=== PATIENT | female | born 1950 | race Hispanic/Latino ===

== ENCOUNTER 2017-01-25 20:30 | Emergency (ER) | payer MEDICARE ==
[2017-01-25 20:30] VITALS: PULSE 78; BMI 15.0
[2017-01-25 20:49] VITALS: O2SAT 97
--- NOTE | 2017-01-25 21:02 | C.PDOC ---
History Of Present Illness 67 year old female presents to the ED with complaints of dysuria for two weeks. Patient notes a history of schizophrenia that is well controlled with medications with last admission for schizophrenia being in June 2016. She states dysuria caused exacerbation of hallucinations consistent with past UTI effect and began hearing voices again that were not commands but more of mumbles and do not distress her. Patient's son gave patient left over amoxicillin with relief of symptoms for one day but the voices and dysuria returned. She denies any suicidal or homicidal ideations. Time Seen by Provider: 01/25/17 20:36 Chief Complaint (Nursing): Psychiatric Evaluation History Per: Patient History/Exam Limitations: no limitations Onset/Duration Of Symptoms: Persistent (2 weeks ) Current Symptoms Are (Timing): Still Present Suicide/Self Injury Attempted (Context): None Associated Symptoms: Other (hallucenations exacerbated by dysuria). denies: Suicidal Thoughts, Suicidal Plan Involuntary Hold By: None Recent travel outside of the [place]: No Past Medical History Reviewed: Historical Data, Nursing Documentation, Vital Signs Vital Signs: Last Vital Signs Temp 98.6 F 01/25/17 20:41 Pulse 104 H 01/25/17 20:41 Resp 18 01/25/17 20:41 BP 144/66 01/25/17 20:41 Pulse Ox 97 01/25/17 21:58 - Medical History PMH: Anxiety, Cardia Arrhythmia, COPD, Depression, Schizophrenia, Seizures ( EPILEPSY) Surgical History: Appendectomy Denies: Coronary Stent - [facility] Procedures CORONAR ARTERIOGR-2 CATH (01/13/14) GROUP PSYCHOTHERAPY (06/13/16) INDIVIDUAL PSYCHOTHERAPY, COGNITIVE-BEHAVIORAL (06/13/16) LEFT HEART CARDIAC CATH (01/13/14) LT HEART ANGIOCARDIOGRAM (01/13/14) Family History: States: Unknown Family Hx - Social History Hx Tobacco Use: Yes Hx Alcohol Use: No (DENIED) Hx Substance Use: No (DENIED) - Immunization History Hx Tetanus Toxoid Vaccination: No Hx Influenza Vaccination: No Hx Pneumococcal Vaccination: No Review Of Systems Constitutional: Negative for: Fever, Chills, Sweats Cardiovascular: Negative for: Chest Pain, Palpitations Respiratory: Negative for: Cough, Shortness of Breath Gastrointestinal: Negative for: Nausea, Vomiting, Abdominal Pain, Diarrhea Genitourinary: Positive for: Dysuria Neurological: Positive for: Other (Hallucenations, hearing mumbling voices. ) Physical Exam - Physical Exam Appears: Non-toxic, No Acute Distress Skin: Warm, Dry Head: Atraumatic Oral Mucosa: Moist Neck: No Midline Cervical Tenderness, No Paracervical Tenderness, Supple Chest: Symmetrical, No Deformity Cardiovascular: Rhythm Regular Respiratory: No Rales, No Rhonchi, No Stridor, No Wheezing Gastrointestinal/Abdominal: Soft, No Tenderness, No Distention, No Guarding, No Rebound Back: No CVA Tenderness, No Vertebral Tenderness, No Paraspinal Tenderness Extremity: Normal ROM, No Tenderness Neurological/Psych: Oriented x3 ED Course And Treatment - Laboratory Results Result Diagrams: 01/25/17 21:03 01/25/17 21:03 Lab Interpretation: Abnormal Interpretation Of Abnormal: Elevated WBC 13.8 with left shift, urine +2+ leukocyte esterase 64 WBC and many bacteria. O2 Sat by Pulse Oximetry: 97 (room air ) Pulse Ox Interpretation: Normal Reevaluation Time: 22:01 Reassessment Condition: Improved (Patient remains comfortable in ED.) - Physician Consult Information Time Consulting Physician Contacted: 22:07 Physician Contacted: Jennifer Chamberlain Outcome Of Conversation: Patient to be discharged with Rx for Macrobid. She will follow up with the urine culture and will see her in the office this week. Disposition Counseled Patient/Family Regarding: Studies Performed, Diagnosis, Need For Followup, Rx Given - Disposition Referrals: Jennifer Chamberlain MD [Staff Provider] - Disposition: HOME/ ROUTINE Disposition Time: 22:09 Condition: STABLE Prescriptions: Nitrofurantoin Macrocrystals [Macrobid] 1 cap PO BID #14 cap Instructions: Urinary Tract Infection in Women (ED), Schizophrenia (ED) - Clinical Impression Clinical Impression: UTI (urinary tract infection), Hallucinations, Schizophrenia - Scribe Statement The provider has reviewed the documentation as recorded by the Scribe Adwoa Ramey All medical record entries made by the Scribe were at my direction and personally dictated by me. I have reviewed the chart and agree that the record accurately reflects my personal performance of the history, physical exam, medical decision making, and the department course for this patient. I have also personally directed, reviewed, and agree with the discharge instructions and disposition.
[2017-01-25 21:12] LABS: BASO # 0.1 K/uL (0.0-0.2); EOS % 0.2 % (0.0-4.0); HEMATOCRIT 37.1 % (34.0-47.0); LYMPH # 1.5 K/uL (1.0-4.3); LYMPH % 10.8 % (20.0-40.0); MEAN CELL VOLUME 97.4 fL (81.0-99.0); MEAN CORPUSCULAR HEMOGLOBIN 33.1 pg (27.0-31.0); MEAN PLATELET VOLUME 7.5 fL (7.2-11.7); MONO # 0.3 K/uL (0.0-0.8); MONO % 2.5 % (0.0-10.0); RED CELL DISTRIBUTION WIDTH 13.4 % (11.5-14.5)
[2017-01-25 21:19] LABS: WHITE BLOOD COUNT 13.8 K/uL (4.8-10.8)
[2017-01-25 21:30] LABS: RBC URINE 5 /hpf (0-3); URINE BACTERIA MOD (<OCC); URINE BILIRUBIN NEGATIVE (NEGATIVE); URINE BLOOD NEGATIVE (NEGATIVE); URINE COLOR Yellow (YELLOW); URINE GLUCOSE (UA) NORMAL (Normal); URINE KETONE NEGATIVE (NEGATIVE); URINE LEUKOCYTE ESTERASE 2+ Leu/uL (Negative); URINE PROTEIN NEGATIVE (NEGATIVE); URINE UROBILINOGEN NORMAL mg/dL (0.2-1.0); WBC URINE 64 /hpf (0-5)
[2017-01-25 21:33] LABS: CHLORIDE 100 mmol/L (98-107); POTASSIUM 3.5 mmol/L (3.6-5.2); SODIUM 136 mmol/L (132-148)
[2017-01-25 21:35] LABS: ALB/GLOB RATIO 1.3 (1.0-2.1); ALKALINE PHOSPHATASE 135 U/L (38-126); AST/SGOT 27 U/L (14-36); BILIRUBIN,TOTAL 0.5 mg/dL (0.2-1.3); BLOOD UREA NITROGEN 5 mg/dL (7-17); CARBON DIOXIDE 24 mmol/L (22-30); GFR AFRICAN-AMERICAN > 60
[2017-01-25 21:36] LABS: ALCOHOL SERUM < 10 mg/dl (0-10); ALT/SGPT 27 U/L (9-52); CALCIUM 9.4 mg/dl (8.6-10.4); GLUCOSE,RANDOM 179 mg/dL (65-105)
[2017-01-25 22:20] VITALS: BP 164/79; PULSE 94; RESP 20; TEMP 98
== END 2017-01-25 22:32 | disposition home or self-care (01) ==
LOC: C.ER 20:30
DX: N39.0 Urinary tract infection, site not specified (principal); B96.89 Other specified bacterial agents as the cause of diseases classified elsewhere; R44.0 Auditory hallucinations; F20.9 Schizophrenia, unspecified
CPT/HCPCS: 80053; 80185; 81001; 85025; 87086; 99285; G0480

== ENCOUNTER 2017-02-05 19:02 | Inpatient (IN) | payer MEDICARE ==
[2017-02-05 19:04] VITALS: BMI 15.0
[2017-02-05 19:16] VITALS: O2SAT 100
--- NOTE | 2017-02-05 19:45 | C.PDOC ---
History Of Present Illness A 67 y/o F who is a baseline schizophrenic, c/o hearing more voice today than usual. Denies suicidal or homicidal ideation, nauseas, vomiting, diarrhea, dizziness, or any other physical complaints. Time Seen by Provider: 02/05/17 19:20 Chief Complaint (Nursing): Psychiatric Evaluation History Per: Patient History/Exam Limitations: no limitations Onset/Duration Of Symptoms: Hrs Current Symptoms Are (Timing): Still Present Suicide/Self Injury Attempted (Context): None Modifying Factor(s): None Severity: Mild Associated Symptoms: denies: Suicidal Thoughts, Suicidal Plan Involuntary Hold By: None Recent travel outside of the [place]: No Additional History Per: Patient Past Medical History Reviewed: Historical Data, Nursing Documentation, Vital Signs Vital Signs: Last Vital Signs Temp 98.2 F 02/05/17 19:11 Pulse 102 H 02/05/17 19:11 Resp 18 02/05/17 19:11 BP 145/85 02/05/17 19:11 Pulse Ox 100 02/05/17 19:49 - Medical History PMH: Anxiety, Cardia Arrhythmia, COPD, Depression, Schizophrenia, Seizures ( EPILEPSY) Denies: Diabetes, Hepatitis, HIV, HTN, Chronic Kidney Disease, Sexually Transmitted Disease Surgical History: Appendectomy Denies: Coronary Stent - [facility] Procedures CORONAR ARTERIOGR-2 CATH (01/13/14) GROUP PSYCHOTHERAPY (06/13/16) INDIVIDUAL PSYCHOTHERAPY, COGNITIVE-BEHAVIORAL (06/13/16) LEFT HEART CARDIAC CATH (01/13/14) LT HEART ANGIOCARDIOGRAM (01/13/14) Family History: States: Unknown Family Hx - Social History Hx Tobacco Use: Yes Hx Alcohol Use: No (DENIED) Hx Substance Use: No (DENIED) - Immunization History Hx Tetanus Toxoid Vaccination: No Hx Influenza Vaccination: No Hx Pneumococcal Vaccination: No Review Of Systems Except As Marked, All Systems Reviewed And Found Negative. Gastrointestinal: Negative for: Nausea, Vomiting, Diarrhea Neurological: Negative for: Dizziness Psych: Positive for: Psychosis (Hearing voices). Negative for: Suicidal ideation, Other (Homicidal ideation) Physical Exam - Physical Exam Appears: Non-toxic, No Acute Distress, Other (Thin appearing, elderly, chronically mentally ill appearing, Cooperative.) Skin: Warm, Dry Head: Atraumatic, Normacephalic Eye(s): bilateral: Normal Inspection Cardiovascular: Rhythm Regular Respiratory: Normal Breath Sounds, No Accessory Muscle Use, No Rales, No Rhonchi , No Wheezing Gastrointestinal/Abdominal: Soft, No Tenderness Neurological/Psych: Oriented x3, Normal Speech, Other (No focal deficit) Gait: Steady ED Course And Treatment - Laboratory Results Result Diagrams: 02/05/17 20:14 02/05/17 20:14 Lab Interpretation: Normal (ua neg.) O2 Sat by Pulse Oximetry: 100 (RA) Pulse Ox Interpretation: Normal Reevaluation Time: 21:32 Reassessment Condition: Unchanged - Physician Consult Information Outcome Of Conversation: 2129: d/w Crisis- ok to 5E Medical Decision Making Medical Decision Making: Impression: A 67 y/o F c/o hearing more voice today than usual. Plans: -Blood labs -UA -Reassess 2129: exacerbation of schizo Disposition Doctor Will See Patient In The: Hospital Counseled Patient/Family Regarding: Studies Performed, Diagnosis - Disposition Referrals: Keyur Jimenez MD [Primary Care Provider] - Disposition: HOSPITALIZED Disposition Time: 21:33 Condition: GOOD - Clinical Impression Clinical Impression: Schizophrenia - Scribe Statement The provider has reviewed the documentation as recorded by the Scribe Lucila morrell All medical record entries made by the Scribe were at my direction and personally dictated by me. I have reviewed the chart and agree that the record accurately reflects my personal performance of the history, physical exam, medical decision making, and the department course for this patient. I have also personally directed, reviewed, and agree with the discharge instructions and disposition.
[2017-02-05 19:53] LABS: SQUAMOUS EPITHIAL 62 /hpf (0-5); URINE BACTERIA MOD (<OCC); URINE BILIRUBIN NEGATIVE (NEGATIVE); URINE BLOOD NEGATIVE (NEGATIVE); URINE CLARITY Hazy (Clear); URINE COLOR Yellow (YELLOW); URINE GLUCOSE (UA) NORMAL (Normal); URINE LEUKOCYTE ESTERASE 2+ Leu/uL (Negative); URINE NITRATE NEGATIVE (NEGATIVE); URINE PROTEIN NEGATIVE (NEGATIVE); URINE UROBILINOGEN NORMAL mg/dL (0.2-1.0)
[2017-02-05 19:59] LABS: BARBITURATES, UR NEGATIVE (NEGATIVE)
[2017-02-05 20:00] LABS: BENZODIAZEPINES, UR NEGATIVE (NEGATIVE)
[2017-02-05 20:03] LABS: OPIATES, UR NEGATIVE (NEGATIVE)
[2017-02-05 20:04] LABS: PHENCYCLIDINE, UR NEGATIVE (NEGATIVE)
[2017-02-05 20:18] LABS: BASO # 0.1 K/uL (0.0-0.2); EOS % 0.8 % (0.0-4.0); HEMOGLOBIN 12.2 g/dL (11.0-16.0); LYMPH # 1.7 K/uL (1.0-4.3); LYMPH % 25.8 % (20.0-40.0); MEAN CELL VOLUME 98.4 fL (81.0-99.0); MEAN CORPUSCULAR HEMOGLOBIN 32.6 pg (27.0-31.0); MEAN CORPUSCULAR HGB CONC 33.2 g/dL (33.0-37.0); MEAN PLATELET VOLUME 7.9 fL (7.2-11.7); MONO # 0.4 K/uL (0.0-0.8); MONO % 6.1 % (0.0-10.0); NEUT # 4.3 K/uL (1.8-7.0); NEUT % 66.3 % (50.0-75.0); NRBC % 0.1 % (0.0-2.0); RBC 3.74 Mil/uL (3.80-5.20); RED CELL DISTRIBUTION WIDTH 13.4 % (11.5-14.5)
[2017-02-05 20:20] LABS: WHITE BLOOD COUNT 6.4 K/uL (4.8-10.8)
[2017-02-05 20:29] LABS: ALBUMIN 3.9 g/dL (3.5-5.0)
[2017-02-05 20:32] LABS: ALB/GLOB RATIO 1.3 (1.0-2.1); AST/SGOT 28 U/L (14-36); BLOOD UREA NITROGEN 6 mg/dL (7-17); GFR AFRICAN-AMERICAN > 60; GFR NON-AFRICAN AMERICAN > 60
[2017-02-05 20:33] LABS: ALT/SGPT 39 U/L (9-52); CALCIUM 9.1 mg/dl (8.6-10.4)
[2017-02-05 20:34] LABS: DILANTIN (PHENYTOIN) 9.3 ug/mL (10-20)
[2017-02-05] MEDS ORDERED: Potassium Chloride 20 mEq ER Tab PO ONE (21:59)
[2017-02-05] MEDS ORDERED: Potassium Chloride 10 mEq ER Tab PO STA (22:02)
--- NOTE | 2017-02-06 13:32 | PCM.PSYCH ---
Initial Psychiatric Evaluation - Initial Psychiatric Evaluation Type of Admission: Voluntary Legal Status: Capacity Chief Complaint (in patient's own words): "I don't feel well" History of Present Illness and Precipitating Events: The pt is seen, chart reviewed, case discussed. She is a 67 yo WF, , lives with her son in , has another son too. She is on disability for schizoaffective d/o Referred by her psychiatrist Dr. Aldana in [facility]. She reports AH telling her mostly comforting things, ie "Don't worry," but she is still disturbed by hearing them. She also feels more depressed but not suicidal. She reports compliance with her meds and denies drug/alcohol use. Reports lots of depressive sxs and some paranoia She is worried about her sons "even though there is nothing to worry." Since she is overwhelmed by the voices and decompensated severely she is admitted. Past psych hx: Multiple admissions, schizoaffective d/o. Family psych hx: Denies Medical hx: Heart dz (on digoxin), seizure d/o (on dilantin but level is slightly low) Current Medications: Active Medications Generic Name Dose Route Start Last Admin Trade Name Freq PRN Reason Stop Dose Admin Benztropine Mesylate 2 mg 02/06/17 00:53 Cogentin PO Q6 PRN Extra Pyramidal Symptoms Digoxin 0.25 mg 02/06/17 14:00 Lanoxin PO DAILY JORDAN Diphenhydramine HCl 50 mg 02/06/17 00:53 Benadryl PO Q6 PRN Extra Pyramidal Symptoms Haloperidol 5 mg 02/06/17 00:53 Haldol PO Q8 PRN Moderate Agitation Haloperidol Lactate 5 mg 02/06/17 00:53 Haldol IM Q8 PRN Moderate Agitation Mirtazapine 15 mg 02/06/17 22:00 Remeron PO HS JORDAN Nitrofurantoin Macrocrystals 100 mg 02/06/17 18:00 Macrobid PO BID JORDAN Phenytoin Sodium 100 mg 02/06/17 14:00 02/06/17 13:12 Dilantin PO 100 mg TID JORDAN Administration Trazodone HCl 100 mg 02/05/17 23:00 02/05/17 23:00 Desyrel PO 100 mg HS JORDAN Administration Venlafaxine HCl 150 mg 02/07/17 10:00 Effexor Xr PO QAM [facility] Venlafaxine HCl 75 mg 02/06/17 18:00 Effexor Xr PO QPM [facility] Past Psychiatric History - Past Psychiatric History Previous Treatment History: Inpatient Pertinent Medical Hx (Current Medical&Sleep Prob, Allergies): Allergies Allergy/AdvReac Type Severity Reaction Status Date / Time No Known Allergies Allergy Verified 02/05/17 19:11 Digoxin [Digitek] 0.25 mg PO DAILY 03/15/16 Phenytoin Sodium Extended [Dilantin] 100 mg PO TID 03/15/16 Venlafaxine HCl [Effexor Xr] 37.5 mg PO QAM 03/15/16 Venlafaxine HCl [Effexor Xr] 150 mg PO QPM 03/15/16 Mirtazapine [Remeron] 15 mg PO HS #0 tab 06/17/16 risperiDONE [RisperDAL Tab] 2 mg PO HS #30 tab 06/17/16 Nitrofurantoin Macrocrystals [Macrobid] 1 cap PO BID #14 cap 01/25/17 risperiDONE [RisperDAL Tab] 0.5 mg PO DAILY 01/25/17 Review of Systems - Psychiatric Psychiatric: Abnormal Sleep Pattern, Anhedonia, Anxiety, Auditory Hallucinations , Depression, Difficulty Concentrating, Hallucinations, Irritability, Memory Loss, Mood Swings, Panic Attacks, Paranoia. absent: Homicidal Ideation, Suicidal Ideation Mental Status Examination - Personal Presentation Personal Presentation: Looks stated age - Affect Affect: Constricted - Motor Activity Motor Activity: Calm - Reliability in Providing Information Reliability in Providing Information: Poor, due to cognitve impairment - Speech Speech: Organized - Mood Mood: Depressed, Anxious - Formal Thought Process Formal Thought Process: Hallucinations, Paranoia - Cognitive Functions Orientation: Person, Place, Situation, Time Sensorium: Alert Attention/Concentration: Easily distracted Estimate of Intelligence: Average Judgement: Intact, as evidence by: Insight regarding need for hospitalization Memory: Recent intact, as evidence by: Ability to recall events of the day, Remote impaired as evidenced by: Inability to recall historical events - Risk Risk: Diminished functioning - Strength & Assets Inventory Strength & Assets Inventory: Family support, Cooperative - Limitations Limitations: Other DSM 5 DX - DSM 5 DSM 5 Diagnosis: Schizoaffective d/o - depressed - Recommended/Plan of Treatment Treatment Recommendations and Plan of Treatment: Risperdal increased to 3 mg, for psychotic sxs Effexor increased to 225 mg for depressive sxs Continue other meds Dilantin level in 3-4 days Macrobid for UTI As needed medications Attend groups and activities Individual therapy with CBT Supportive therapy and psychoeducation Teach relaxation skills Follow medical conditions, labs, vitals Refer to [facility] 34 min Projected ELOS: 4-5 days Prognosis: good Discharge Plan and Discharge Criteria: No dep sxs or AH
[2017-02-06] MEDS ORDERED: Digoxin 250 mcg (0.25 mg) Tab PO SCH (14:00)
[2017-02-06] MEDS: Venlafaxine 75 mg ER Cap PO SCH (17:05)
[2017-02-06] MEDS: Digoxin 250 mcg (0.25 mg) Tab PO SCH (17:05)
[2017-02-06 17:14] VITALS: RESP 19
[2017-02-07] MEDS: Venlafaxine 150 mg ER Cap PO SCH (09:31)
[2017-02-07] MEDS ORDERED: Venlafaxine 37.5 mg ER Cap PO SCH (10:00)
--- NOTE | 2017-02-07 12:41 | PCM.PYCHPN ---
Psychiatric Progress Note - Psychiatric Progress Note Patient seen today, length of contact: 16 min Patient Chief Complaint: i am feeling depressed Problems Identified/Issues Discussed: Patient seen and evaluated, chart reviewed and discussed with the nurse. Patient reports depressed mood and at times feelings of hopelessness and helplessness. As per the staff patient remained isolated and withdrawn. Patient still reports persecutory delusions. She reports poor sleep and poor appetite. She is complaint with the medications and denies any side effects. Supportive therapy and psychoeducation were given. Medication Change: No Mental Status Examination - Cognitive Function Orientation: Person, Place, Situation, Time Memory: Intact Attention: WNL Concentration: Poor Association: Loose Fund of Knowledge: Poor - Mood Mood: Depressed, Anxious - Affect Affect: Constricted - Speech Speech: Soft - Formal Thought Process Formal Thought Process: Hallucinations, Paranoia - Suicidal Ideation Suicidal Ideation: No - Homicidal Ideation Homicidal Ideation: No Goal/Treatment Plan - Goal/Treatment Plan Need for Continued Stay: Discharge may exacerbated symptoms, Severe functional impairment Progress Toward Problem(s) and Goals/Treatment Plan: Schizoaffective d/o - depressed Risperdal increased to 3 mg, for psychotic sxs Effexor increased to 225 mg for depressive sxs Continue other meds Dilantin level in 3-4 days Macrobid for UTI As needed medications Attend groups and activities Individual therapy with CBT Supportive therapy and psychoeducation Teach relaxation skills Follow medical conditions, labs, vitals Refer to [facility] - Smoking Cessation Smoking Cessation Initiated: No
[2017-02-07] MEDS: Venlafaxine 75 mg ER Cap PO SCH (17:35)
[2017-02-07] MEDS: Digoxin 250 mcg (0.25 mg) Tab PO SCH (17:36)
[2017-02-08] MEDS: Venlafaxine 150 mg ER Cap PO SCH (09:52)
--- NOTE | 2017-02-08 13:40 | PCM.PYCHPN ---
Psychiatric Progress Note - Psychiatric Progress Note Patient seen today, length of contact: 16 min Patient Chief Complaint: "I am better" Problems Identified/Issues Discussed: The pt is seen, chart reviewed, case discussed with staff. Support given, CBT used briefly No new symptoms reported, improving slowly and needs more time No SEs from medications, risks discussed. After care discussed - will return to [facility] Better than Monday Medication Change: No Medical Record Reviewed: Yes Mental Status Examination - Cognitive Function Orientation: Person, Place, Situation, Time Memory: Intact Attention: WNL Concentration: Poor Association: Loose Fund of Knowledge: Poor - Mood Mood: Depressed, Anxious - Affect Affect: Constricted - Speech Speech: Soft - Formal Thought Process Formal Thought Process: Hallucinations, Paranoia - Suicidal Ideation Suicidal Ideation: No - Homicidal Ideation Homicidal Ideation: No Goal/Treatment Plan - Goal/Treatment Plan Need for Continued Stay: Discharge may exacerbated symptoms, Severe functional impairment Progress Toward Problem(s) and Goals/Treatment Plan: Risperdal increased to 3 mg, for psychotic sxs Effexor increased to 225 mg for depressive sxs Continue other meds Dilantin level in 3-4 days Macrobid for UTI As needed medications Attend groups and activities Individual therapy with CBT Supportive therapy and psychoeducation Teach relaxation skills Follow medical conditions, labs, vitals Refer back to [facility] Estimated Date of D/C: 02/10/17
[2017-02-08] MEDS: Digoxin 250 mcg (0.25 mg) Tab PO SCH (17:29)
[2017-02-08] MEDS: Venlafaxine 75 mg ER Cap PO SCH (19:00)
[2017-02-09] MEDS: Venlafaxine 150 mg ER Cap PO SCH (10:48)
--- NOTE | 2017-02-09 11:05 | PCM.PYCHPN ---
Psychiatric Progress Note - Psychiatric Progress Note Patient seen today, length of contact: 16 min Patient Chief Complaint: "I am nervous" Problems Identified/Issues Discussed: The pt is seen, chart reviewed, case discussed with staff. Support given, psychoeducation given Sxs have lessened a lot Nervous about pending d/c. Support given Medication Change: No Medical Record Reviewed: Yes Mental Status Examination - Cognitive Function Orientation: Person, Place, Situation, Time Memory: Intact Attention: WNL Concentration: Poor Association: Loose Fund of Knowledge: Poor - Mood Mood: Depressed, Anxious - Affect Affect: Constricted - Speech Speech: Soft - Formal Thought Process Formal Thought Process: Paranoia (mild) - Suicidal Ideation Suicidal Ideation: No - Homicidal Ideation Homicidal Ideation: No Goal/Treatment Plan - Goal/Treatment Plan Need for Continued Stay: Discharge may exacerbated symptoms, Severe functional impairment Progress Toward Problem(s) and Goals/Treatment Plan: Risperdal increased to 3 mg, for psychotic sxs Effexor increased to 225 mg for depressive sxs Continue other meds Dilantin level in 3-4 days Macrobid for UTI As needed medications Attend groups and activities Individual therapy with CBT Supportive therapy and psychoeducation Teach relaxation skills Follow medical conditions, labs, vitals Refer back to [facility] Estimated Date of D/C: 02/10/17
[2017-02-09 17:29] VITALS: PULSE 70
[2017-02-09] MEDS: Venlafaxine 75 mg ER Cap PO SCH (17:29)
[2017-02-09] MEDS: Digoxin 250 mcg (0.25 mg) Tab PO SCH (17:29)
[2017-02-10 07:30] VITALS: BP 112/67; PULSE 77; TEMP 97.8
[2017-02-10] MEDS: Venlafaxine 150 mg ER Cap PO SCH (09:34)
--- NOTE | 2017-02-10 09:38 | PCM.PYCHDC ---
Mental Status Examination - Mental Status Examination Orientation: Person, Place, Situation, Time Memory: Impaired Mood: Anxious Affect: Constricted Speech: Slurred Attention: WNL Concentration: Poor Association: WNL Fund of Knowledge: WNL Formal Thought Process: No Impairment Suicidal Ideation: No Current Homicidal Ideation?: No Discharge Summary - Discharge Note Reason for Hospitalization: Acute exacerbation of psychotic sxs and depression Psychiatric History (includes Medical, Family, Personal Hx): Schizoaffective, [facility] patient, previous admissions Consultations:: List each consultation separately and include: 1. Reason for request. 2. Findings. 3. Follow-up Summary of Hospital Course include:: 1. Description of specific treatment plan utilized for patients during their course of treatmen. 2. Summarize the time- course for resolution of acute symptoms and/or regressed behaviors. 3. Describe issues identified and worked on during hospitalization. 4. Describe medication utilized. 5. Describe medical problems identified and treated. 6. Reassessment of suicide risk Summary of Hospital Course: On admission: The pt is seen, chart reviewed, case discussed. She is a 67 yo WF, , lives with her son in , has another son too. She is on disability for schizoaffective d/o Referred by her psychiatrist Dr. Aldana in [facility]. She reports AH telling her mostly comforting things, ie "Don't worry," but she is still disturbed by hearing them. She also feels more depressed but not suicidal. She reports compliance with her meds and denies drug/alcohol use. Reports lots of depressive sxs and some paranoia She is worried about her sons "even though there is nothing to worry." Since she is overwhelmed by the voices and decompensated severely she is admitted. Past psych hx: Multiple admissions, schizoaffective d/o. Family psych hx: Denies Medical hx: Heart dz (on digoxin), seizure d/o (on dilantin but level is slightly low) Hospital course: The pt was admitted and started on treatment with psychotherapy, support, psychoeducation and medications. AL and CBT used. The pt attended groups and activities, as well as milieu therapy. All the risks and benefits of medications are discussed and the patient understood and agreed. Dose adjusted: risperdal and effexor both increased slightly with good response The pt improved with the treatments provided. After care discussed with the patient. [facility]rc - Final Diagnosis (DSM 5) Condition upon Discharge: GOOD DSM 5: Schizoaffective d/o - depressed Disposition: HOME/ ROUTINE Follow-up Treatment Plan: Continue below medications after discharge. (PS. Digoxin not ordered as her pharmacy said she had a 30-day waiting) Follow after care plan as discussed. Use relapse prevention skills Return to ER or call 911 if suicidal, homicidal or symptoms relapse. Stay away from stress, alcohol and drugs. See primary doctor once a year. Prescriptions/Medication Reconciliation: Digoxin [Digitek] 0.25 mg PO DAILY #30 Nitrofurantoin Macrocrystals [Macrobid] 1 cap PO BID #8 cap Phenytoin, Extended [Dilantin] 100 mg PO TID #90 cer risperiDONE [RisperDAL Tab] 3 mg PO HS #30 tab traZODone [Desyrel] 100 mg PO HS #30 tab Venlafaxine [Effexor XR] 150 mg PO DAILY #30 cer Venlafaxine [Effexor XR] 75 mg PO DAILY #30 cer
== END 2017-02-10 13:00 | disposition home or self-care (01) | DRG 885 ==
LOC: SUPCPDRO 19:02 → C.ER 19:02 → C.5E 21:33
PROVIDERS: ADMIT Psychiatry & Neurology Psychiatry; ATTEND Psychiatry & Neurology Psychiatry
PROC: GZHZZZZ Group Psychotherapy (ICD-10-PCS; principal; 2017-02-05)
PROC: GZ58ZZZ Individual Psychotherapy, Cognitive-Behavioral (ICD-10-PCS; 2017-02-05)
PROC: GZ56ZZZ Individual Psychotherapy, Supportive (ICD-10-PCS; 2017-02-05)
DX: F25.1 Schizoaffective disorder, depressive type (principal); N39.0 Urinary tract infection, site not specified

== ENCOUNTER 2017-04-25 13:14 | Emergency (ER) | payer MEDICARE ==
[2017-04-25 13:14] VITALS: PULSE 65; BMI 15.0
[2017-04-25 13:20] VITALS: BP 116/75; PULSE 98; RESP 20; TEMP 97.4; O2SAT 99
[2017-04-25 14:12] LABS: RBC URINE 5 /hpf (0-3); URINE BACTERIA RARE (<OCC); URINE BILIRUBIN NEGATIVE (NEGATIVE); URINE BLOOD NEGATIVE (NEGATIVE); URINE COLOR Amber (YELLOW); URINE GLUCOSE (UA) NORMAL (Normal); URINE KETONE TRACE mg/dL (NEGATIVE); URINE LEUKOCYTE ESTERASE 3+ Leu/uL (Negative); URINE PROTEIN NEGATIVE (NEGATIVE); WBC URINE 161 /hpf (0-5)
--- NOTE | 2017-04-25 14:28 | C.PDOC ---
History Of Present Illness Pt c/o foul smelling urine and suprapubic discomfort. Time Seen by Provider: 04/25/17 13:31 Chief Complaint (Nursing): Female Genitourinary History Per: Patient Onset/Duration Of Symptoms: Days (about 1 week) Current Symptoms Are (Timing): Still Present Severity: Moderate Associated Symptoms: Urinary Symptoms Alleviating Factors: None Additional History Per: Prior Records Abnormal Vaginal Bleeding: No Past Medical History Reviewed: Historical Data, Nursing Documentation, Vital Signs Vital Signs: Last Vital Signs Temp 97.4 F L 04/25/17 13:18 Pulse 98 H 04/25/17 13:18 Resp 20 04/25/17 13:18 BP 116/75 04/25/17 13:18 Pulse Ox 99 04/25/17 13:18 - Medical History PMH: Anxiety, Cardia Arrhythmia, COPD, Depression, Schizophrenia, Seizures ( EPILEPSY) Surgical History: Appendectomy - [facility] Procedures CORONAR ARTERIOGR-2 CATH (01/13/14) GROUP PSYCHOTHERAPY (02/05/17) INDIVIDUAL PSYCHOTHERAPY, COGNITIVE-BEHAVIORAL (02/05/17) INDIVIDUAL PSYCHOTHERAPY, SUPPORTIVE (02/05/17) LEFT HEART CARDIAC CATH (01/13/14) LT HEART ANGIOCARDIOGRAM (01/13/14) Family History: States: Unknown Family Hx - Social History Hx Tobacco Use: Yes Hx Alcohol Use: No Hx Substance Use: No - Immunization History Hx Tetanus Toxoid Vaccination: No Hx Influenza Vaccination: No Hx Pneumococcal Vaccination: No Review Of Systems Except As Marked, All Systems Reviewed And Found Negative. Constitutional: Negative for: Fever, Chills, Weakness Cardiovascular: Negative for: Chest Pain Respiratory: Negative for: Shortness of Breath Gastrointestinal: Negative for: Vomiting, Diarrhea Genitourinary: Negative for: Vaginal Discharge, Vaginal Bleeding Musculoskeletal: Negative for: Neck Pain, Back Pain Skin: Negative for: Rash Neurological: Negative for: Weakness, Numbness Physical Exam - Physical Exam Appears: Non-toxic, No Acute Distress Skin: Normal Color, Warm, Dry, No Rash Head: Atraumatic, Normacephalic Eye(s): bilateral: Normal Inspection, PERRL, EOMI Oral Mucosa: Moist Neck: Normal ROM, Supple Cardiovascular: Rhythm Regular Respiratory: Normal Breath Sounds, No Accessory Muscle Use Gastrointestinal/Abdominal: Soft, No Tenderness Back: No CVA Tenderness Extremity: Normal ROM Neurological/Psych: Oriented x3, Normal Motor, Normal Sensation ED Course And Treatment - Laboratory Results Interpretation Of Abnormal: UTI O2 Sat by Pulse Oximetry: 99 Pulse Ox Interpretation: Normal Disposition Counseled Patient/Family Regarding: Studies Performed, Diagnosis, Need For Followup, Rx Given - Disposition Referrals: Jennifer Chamberlain MD [Staff Provider] - Disposition: HOME/ ROUTINE Disposition Time: 14:27 Condition: STABLE Additional Instructions: Drink plenty of fluids. Follow up with your doctor this week. Return to the ER if you develop fever, chills, vomiting, back pain, worsening of symptoms or if you have any other concerns. Prescriptions: Ciprofloxacin [Cipro] 1 tab PO BID #10 tab Instructions: Urinary Tract Infection in Women (ED) Forms: [facility] (German) - Clinical Impression Clinical Impression: UTI (urinary tract infection)
== END 2017-04-25 14:34 | disposition home or self-care (01) ==
LOC: C.ER 13:14
DX: N39.0 Urinary tract infection, site not specified (principal)

== ENCOUNTER 2017-10-07 01:41 | Inpatient (IN) | payer MEDICARE ==
[2017-10-07 01:42] VITALS: BMI 15.0
[2017-10-07 02:43] LABS: SQUAMOUS EPITHIAL 4 /hpf (0-5); URINE BILIRUBIN NEGATIVE (NEGATIVE); URINE BLOOD 1+ (NEGATIVE); URINE CLARITY Clear (Clear); URINE COLOR Straw (YELLOW); URINE GLUCOSE (UA) NORMAL (Normal); URINE LEUKOCYTE ESTERASE NEG Leu/uL (Negative); URINE PROTEIN NEGATIVE (NEGATIVE); URINE UROBILINOGEN NORMAL mg/dL (0.2-1.0)
--- NOTE | 2017-10-07 02:44 | C.PDOC ---
History Of Present Illness Patient brought to ED by son for worsening auditory hallucinations, decreased ability to sleep over the past several days. Patient has h/o schizoaffective disorder, seizure disorder, cardiac arrythmia (on Digoxin). Patient recently saw Dr. Rivas, who adjusted her dose of Risperdal from 3mg at night to 1mg during day, then 2mg at night. Despite the adjustment, she continues to hear voices. She denies SI/HI, and has no current physical complaints. Time Seen by Provider: 10/07/17 01:47 Chief Complaint (Nursing): Psychiatric Evaluation History Per: Patient, Family (son at bedside ) History/Exam Limitations: no limitations Onset/Duration Of Symptoms: Persistent Suicide/Self Injury Attempted (Context): None Past Medical History Reviewed: Historical Data, Nursing Documentation, Vital Signs Vital Signs: Last Vital Signs Temp 97.9 F 10/11/17 08:56 Pulse 84 10/11/17 16:39 Resp 17 10/11/17 16:39 BP 97/57 L 10/11/17 16:39 Pulse Ox 97 10/07/17 06:22 - Medical History PMH: Anxiety, Cardia Arrhythmia, COPD, Depression, Schizophrenia, Seizures ( EPILEPSY) Surgical History: Appendectomy - [facility] Procedures CORONAR ARTERIOGR-2 CATH (01/13/14) GROUP PSYCHOTHERAPY (02/05/17) INDIVIDUAL PSYCHOTHERAPY, COGNITIVE-BEHAVIORAL (02/05/17) INDIVIDUAL PSYCHOTHERAPY, SUPPORTIVE (02/05/17) LEFT HEART CARDIAC CATH (01/13/14) LT HEART ANGIOCARDIOGRAM (01/13/14) Family History: States: No Known Family Hx - Social History Hx Tobacco Use: Yes Hx Alcohol Use: Yes Hx Substance Use: No - Immunization History Hx Tetanus Toxoid Vaccination: No Hx Influenza Vaccination: No Hx Pneumococcal Vaccination: No Review Of Systems Except As Marked, All Systems Reviewed And Found Negative. Cardiovascular: Negative for: Chest Pain Respiratory: Negative for: Shortness of Breath Gastrointestinal: Negative for: Abdominal Pain Psych: Positive for: Other (auditory hallucinations, insomnia). Negative for: Suicidal ideation Physical Exam - Physical Exam Appears: Well, Non-toxic, No Acute Distress, Other (flat affect) Eye(s): bilateral: Normal Inspection Oral Mucosa: Moist Cardiovascular: Rhythm Regular Respiratory: Normal Breath Sounds, No Rales, No Rhonchi, No Wheezing Gastrointestinal/Abdominal: Normal Exam, Bowel Sounds, Soft, No Tenderness Neurological/Psych: Oriented x3 ED Course And Treatment - Laboratory Results Result Diagrams: 10/07/17 03:03 10/07/17 03:03 ECG: Interpreted By Me, Viewed By Me (NSR 83 bpm, normal axis, no acute ST/T wave changes - unchanged from EKG 06/11/16) ECG Interpretation: No Acute Changes O2 Sat by Pulse Oximetry: 98 (RA) Pulse Ox Interpretation: Normal Progress Note: Blood work, UA, UDS, EKG ordered and reviewed. Digoxin level slightly low (0.7, normal is 0.8-2.0), 1 PO dose of Digoxin given. 4:40am- Patient medically cleared. Pending crisis. 5:10am- Patient accepted for psychiatric admission by Dr. Belcher. Disposition - Disposition Disposition: HOSPITALIZED Disposition Time: 05:10 Condition: STABLE - Clinical Impression Clinical Impression: Schizoaffective disorder Decision To Admit - Pt Status Changed To: Hospital Disposition Of: Inpatient - Admit Certification Admit to Inpatient:: After my assessment, the patient will require hospitalization for at least two midnights. This is because of the severity of symptoms shown, intensity of services needed, and/or the medical risk in this patient being treated as an outpatient. - InPatient: Physician Admission Certification: I certify that this patient requires 2 or more midnights of care for the following reason:: see notes - . Bed Request Type: Psychiatry Admitting Physician: Johnny Belcher Patient Diagnosis: Schizoaffective disorder
[2017-10-07 02:57] LABS: BARBITURATES, UR NEGATIVE (NEGATIVE); BENZODIAZEPINES, UR NEGATIVE (NEGATIVE); OPIATES, UR NEGATIVE (NEGATIVE); PHENCYCLIDINE, UR NEGATIVE (NEGATIVE)
[2017-10-07 03:08] LABS: EOS # 0.6 K/uL (0.0-0.7); EOS % 8.5 % (0.0-4.0); LYMPH # 1.1 K/uL (1.0-4.3); LYMPH % 16.2 % (20.0-40.0); MEAN CELL VOLUME 100.3 fL (81.0-99.0); MEAN CORPUSCULAR HEMOGLOBIN 34.3 pg (27.0-31.0); MEAN CORPUSCULAR HGB CONC 34.2 g/dL (33.0-37.0); MEAN PLATELET VOLUME 8.3 fL (7.2-11.7); MONO # 0.2 K/uL (0.0-0.8); MONO % 3.2 % (0.0-10.0); NEUT # 5.1 K/uL (1.8-7.0); NEUT % 72.1 % (50.0-75.0); NRBC % 0.1 % (0.0-2.0); RBC 3.8 Mil/uL (3.80-5.20); RED CELL DISTRIBUTION WIDTH 12.9 % (11.5-14.5)
[2017-10-07 03:18] LABS: ALB/GLOB RATIO 1.3 (1.0-2.1); ALBUMIN 4.2 g/dL (3.5-5.0); ALT/SGPT 30 U/L (9-52); AST/SGOT 25 U/L (14-36); BLOOD UREA NITROGEN 7 mg/dL (7-17); CALCIUM 9.7 mg/dl (8.6-10.4); GFR AFRICAN-AMERICAN > 60; GFR NON-AFRICAN AMERICAN > 60
[2017-10-07] MEDS ORDERED: Digoxin 250 mcg (0.25 mg) Tab PO STA (04:33)
[2017-10-07] MEDS ORDERED: Digoxin 250 mcg (0.25 mg) Tab ONE (04:45)
--- NOTE | 2017-10-07 07:53 | PCM.BM ---
<Renetta Almaraz - Last Filed: 10/07/17 07:52> Treatment Plan Problems - Problems identified on initial assessmt Auditory Hallucination Date Initiated: 10/07/17 Time Initiated: 07:52 Assessment reference: NA Status: Monitor Treatment assets and liabiliti Patient Assests: adapts well, cooperative - Milieu Protocol Maintain good personal hygiene: every shift Encourage regular showers, every shift Remind patient to perform daily oral care, every shift Assist patient to perform ADL's Maintain personal safety: every shift Educate patient to report safety concerns to staff, every shift Monitor environment for contraband/sharps Medication safety: Monitor for expected outcome, potential side effects: every shift, Assess barriers to learning: every shift, Assess readiness for medication education: every shift <Johnny Belcher - Last Filed: 10/09/17 09:58> - Diagnosis (1) Schizoaffective disorder Status: Acute Interventions: 10/09/17 09:58 * Assess/adjust medications daily and /or as needed * See patient on an individual basis 7x/week to assess status of hallucinations * Discuss risks, benefits, side effects and alternatives of medications * See patient on an individual basis 7x/week to assess symptoms of depression * Monitor for side effects & effectiveness of medications * <Sunitha Johnson - Last Filed: 10/09/17 11:00> Family Contact - Goals for Treatment Patient goals for treatment: "I need the right meds." Discharge/Continuing Care - Education Needs Education Needs: Patient Medication, Patient Coping Skills - Discharge Discharge Criteria: Tolerates medication w/o severe side effects, Free of paranoid thoughts, Reduction of target symptoms Discharge to:: Home, With Family - Treatment Team Participation Discussed with Family/SO: No Was Patient/Family/SO present at Treatment Team Meeting: Yes
--- NOTE | 2017-10-07 08:23 | PCM.PSYCH ---
Initial Psychiatric Evaluation - Initial Psychiatric Evaluation Type of Admission: Voluntary Legal Status: Capacity Chief Complaint (in patient's own words): I was hearing voices.' History of Present Illness and Precipitating Events: This is a 67 years old female with a history of schizoaffective disorder came to the ED complaining of hearing voices. As per the ED note, patient reported that she saw her doctor on 10/02/17 before he went on vacation and then saw another doctor Dr. Rivas. Pt. reported that she has been taking her medications as prescribed and she still continues to hear voices. Pt. reports that the voices do not tell her to hurt herself or other people. Pt. reports that she lives with her two sons and one of them is and lives with his in the house. Pt. reports that her in the early part of 1999. Pt. reports that she recently had to in her family. Pt. reports that her nephew a few weeks ago and a close family friend also around the same time. Pt. reports that she is retired at this time. 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 Pt. reports that she has strong upbringing and would not hurt herself or anyone else. Patient remained disorganized and internally preoccupied. She appears paranoid and delusional. She reports depressed mood and feelings of hopelessness and helplessness. However, she denies any suicidal ideation or homicidal ideation. She denies any drugs or any alcohol abuse. PMH: Heart dx (pt reports increased HR), Seizure d/o Past Psychiatric History - Past Psychiatric History Previous Treatment History: Inpatient Pertinent Medical Hx (Current Medical&Sleep Prob, Allergies): Allergies Allergy/AdvReac Type Severity Reaction Status Date / Time No Known Allergies Allergy Verified 10/07/17 01:54 Digoxin [Digitek] 0.25 mg PO DAILY #30 02/10/17 Phenytoin, Extended [Dilantin] 100 mg PO TID #90 cer 02/10/17 Venlafaxine [Effexor XR] 75 mg PO DAILY #30 cer 02/10/17 risperiDONE [RisperDAL Tab] 3 mg PO HS #30 tab 02/10/17 traZODone [Desyrel] 100 mg PO HS #30 tab 02/10/17 Venlafaxine [Effexor XR] 150 mg PO DAILY 10/07/17 risperiDONE [RisperDAL Tab] 1 mg PO DAILY 10/07/17 Review of Systems - Review of Systems All systems: reviewed and no additional remarkable complaints except - Psychiatric Psychiatric: Anxiety, Auditory Hallucinations, Irritability, Paranoia, Suicidal Ideation, Visual Hallucinations Mental Status Examination - Personal Presentation Personal Presentation: Looks stated age - Affect Affect: Constricted, Depressed - Motor Activity Motor Activity: Psychomotor Retardation - Reliability in Providing Information Reliability in Providing Information: Poor, due to alteration in thoughts, Poor , due to altered mood - Speech Speech: Disorganized - Mood Mood: Depressed, Anxious - Formal Thought Process Formal Thought Process: Hallucinations, Delusions, Paranoia, Loosening of associations - Hallucinations/Delusions Hallucinations: Visual, Auditory Delusions: Persecution - Obsessions/Compulsions Obsessions: No Compulsions: No - Cognitive Functions Orientation: Person, Place, Situation, Time Sensorium: Alert Attention/Concentration: Attentive Abstract Thinking: [place] Estimate of Intelligence: Below average Judgement: Imparied, as evidence by: Poor judgement, Imparied, as evidence by: Lack of insight into illness - Risk Risk: Suicidal, Diminished functioning - Limitations Limitations: Living alone DSM 5 DX - DSM 5 DSM 5 Diagnosis: Schizoaffective disorder depressed type - Recommended/Plan of Treatment Treatment Recommendations and Plan of Treatment: Schizoaffective disorder depressed type CBT Psychoeducation Supportive therapy, group therapy, individual therapy Risperdal I am PO daily Risperdal 3 am PO QHS Cogentin 1 mg by mouth twice a day Effexor 225 mg PO Daily Trazodone 100 mg by mouth daily at bedtime Seizure disorder Dilantin 100 mg PO TID Heart dx Dijoxin - Smoking Cessation Smoking Cessation Initiated: No
[2017-10-07] MEDS: Venlafaxine 150 mg ER Cap PO SCH (10:04)
[2017-10-07] MEDS: Venlafaxine 75 mg ER Cap PO SCH (12:38)
[2017-10-08] MEDS: Venlafaxine 150 mg ER Cap PO SCH (09:56)
[2017-10-08] MEDS: Venlafaxine 75 mg ER Cap PO SCH (09:57)
--- NOTE | 2017-10-08 12:36 | PCM.PYCHPN ---
Psychiatric Progress Note - Psychiatric Progress Note Patient seen today, length of contact: 15 min Patient Chief Complaint: I m hearing voices.' Problems Identified/Issues Discussed: Patient seen and evaluated, chart reviewed and discussed with the nurse. Patient remained depressed , disorganized and internally preoccupied. She remained isolated, confined and withdrawn. She still reports of hearing voices. She still appears paranoid and delusional. She is taking medication and denies any side effects. She needs more time for stabilization. Supportive therapy and psychoeducation were given. Medication Change: No Medical Record Reviewed: Yes Mental Status Examination - Cognitive Function Orientation: Person, Place, Situation, Time Memory: Intact Attention: Poor Concentration: Poor Association: Loose Fund of Knowledge: Poor - Mood Mood: Depressed, Anxious - Affect Affect: Constricted, Depressed - Speech Speech: Soft - Formal Thought Process Formal Thought Process: Hallucinations, Delusions, Paranoia, Loosening of associations - Suicidal Ideation Suicidal Ideation: No - Homicidal Ideation Homicidal Ideation: No Goal/Treatment Plan - Goal/Treatment Plan Need for Continued Stay: Severe depression anxiety, Severe functional impairment Progress Toward Problem(s) and Goals/Treatment Plan: Schizoaffective disorder depressed type CBT Psychoeducation Supportive therapy, group therapy, individual therapy Risperdal I am PO daily Risperdal 3 am PO QHS Cogentin 1 mg by mouth twice a day Effexor 225 mg PO Daily Trazodone 100 mg by mouth daily at bedtime Seizure disorder Dilantin 100 mg PO TID CHF Dijoxin
[2017-10-08] MEDS: Digoxin 250 mcg (0.25 mg) Tab PO SCH (17:25)
[2017-10-09] MEDS: Venlafaxine 150 mg ER Cap PO SCH (09:46)
[2017-10-09] MEDS: Venlafaxine 75 mg ER Cap PO SCH (09:49)
--- NOTE | 2017-10-09 09:58 | PCM.PYCHPN ---
Psychiatric Progress Note - Psychiatric Progress Note Patient seen today, length of contact: 16 min Patient Chief Complaint: I m still hearing voices.' Problems Identified/Issues Discussed: Patient seen and evaluated, chart reviewed and discussed with the nurse. As per the staff patient remained isolated, confined and withdrawn. She still reports depressed mood and at times feelings of hopelessness and helplessness. She still appears somewhat disorganized and internally preoccupied. She still reports of hearing voices. She is taking medication and denies any side effects. Symptoms are improving but she needs more time for stabilization. Supportive therapy and psychoeducation were given. Medication Change: Yes Medical Record Reviewed: Yes Mental Status Examination - Cognitive Function Orientation: Person, Place, Situation, Time Memory: Intact Attention: Poor Concentration: Poor Association: Loose Fund of Knowledge: Poor - Mood Mood: Depressed, Anxious - Affect Affect: Constricted, Depressed - Formal Thought Process Formal Thought Process: Hallucinations, Delusions, Paranoia, Loosening of associations - Suicidal Ideation Suicidal Ideation: No - Homicidal Ideation Homicidal Ideation: No Goal/Treatment Plan - Goal/Treatment Plan Need for Continued Stay: Discharge may exacerbated symptoms, Severe functional impairment Progress Toward Problem(s) and Goals/Treatment Plan: Schizoaffective disorder depressed type CBT Psychoeducation Supportive therapy, group therapy, individual therapy Risperdal I am PO daily Risperdal 3 am PO QHS Cogentin 1 mg by mouth twice a day Effexor 225 mg PO Daily Trazodone 100 mg by mouth daily at bedtime Seizure disorder Dilantin 100 mg PO TID CHF Dijoxin - Smoking Cessation Smoking Cessation Initiated: No
[2017-10-09] MEDS: Digoxin 250 mcg (0.25 mg) Tab PO SCH (17:39)
[2017-10-10] MEDS: Venlafaxine 150 mg ER Cap PO SCH (09:58)
[2017-10-10] MEDS: Venlafaxine 75 mg ER Cap PO SCH (09:58)
--- NOTE | 2017-10-10 10:23 | PCM.PYCHPN ---
Psychiatric Progress Note - Psychiatric Progress Note Patient seen today, length of contact: 16 min Patient Chief Complaint: I m still hearing voices.' Problems Identified/Issues Discussed: Patient seen and evaluated, chart reviewed and discussed with the nurse. She reports improvement in her depressed mood and improvement in her feelings of hopelessness and helplessness. She appears more organized and less internally preoccupied. She reports that voices are gone. She is taking medication and denies any side effects. Symptoms are improving but she needs more time for stabilization. Supportive therapy and psychoeducation were given. Medication Change: Yes Medical Record Reviewed: Yes Mental Status Examination - Cognitive Function Orientation: Person, Place, Situation, Time Memory: Intact Attention: WNL Concentration: WNL Association: Loose Fund of Knowledge: Poor - Mood Mood: Depressed, Anxious - Affect Affect: Constricted, Depressed - Speech Speech: Soft - Formal Thought Process Formal Thought Process: Delusions, Loosening of associations - Suicidal Ideation Suicidal Ideation: No - Homicidal Ideation Homicidal Ideation: No Goal/Treatment Plan - Goal/Treatment Plan Need for Continued Stay: Discharge may exacerbated symptoms, Severe functional impairment Progress Toward Problem(s) and Goals/Treatment Plan: Schizoaffective disorder depressed type CBT Psychoeducation Supportive therapy, group therapy, individual therapy Risperdal I am PO daily Risperdal 3 am PO QHS Cogentin 1 mg by mouth twice a day Effexor 225 mg PO Daily Trazodone 100 mg by mouth daily at bedtime Seizure disorder Dilantin 100 mg PO TID CHF Dijoxin - Smoking Cessation Smoking Cessation Initiated: No
[2017-10-10] MEDS: Digoxin 250 mcg (0.25 mg) Tab PO SCH (17:13)
[2017-10-11] MEDS: Venlafaxine 150 mg ER Cap PO SCH (09:02)
[2017-10-11] MEDS: Venlafaxine 75 mg ER Cap PO SCH (09:02)
--- NOTE | 2017-10-11 11:07 | PCM.PYCHPN ---
Psychiatric Progress Note - Psychiatric Progress Note Patient seen today, length of contact: 16 min Patient Chief Complaint: I m still hearing voices.' Problems Identified/Issues Discussed: Patient seen and evaluated, chart reviewed and discussed with the nurse. As per the staff patient remained isolated, and withdrawn. She reports improvement in her depressed mood and improvement in her feelings of hopelessness and helplessness. She appears more organized. She is taking medication and denies any side effects. Symptoms are improving but she needs more time for stabilization. Supportive therapy and psychoeducation were given. Medication Change: Yes Medical Record Reviewed: Yes Mental Status Examination - Cognitive Function Orientation: Person, Place, Situation, Time Memory: Intact Attention: WNL Concentration: WNL Association: Loose Fund of Knowledge: WNL - Mood Mood: Depressed, Anxious - Affect Affect: Constricted, Depressed - Speech Speech: Soft - Formal Thought Process Formal Thought Process: Paranoia, Loosening of associations - Suicidal Ideation Suicidal Ideation: No - Homicidal Ideation Homicidal Ideation: No Goal/Treatment Plan - Goal/Treatment Plan Need for Continued Stay: Discharge may exacerbated symptoms, Severe functional impairment Progress Toward Problem(s) and Goals/Treatment Plan: Schizoaffective disorder depressed type CBT Psychoeducation Supportive therapy, group therapy, individual therapy Risperdal I am PO daily Risperdal 3 am PO QHS Cogentin 1 mg by mouth twice a day Effexor 225 mg PO Daily Trazodone 100 mg by mouth daily at bedtime Seizure disorder Dilantin 100 mg PO TID CHF Dijoxin
[2017-10-11] MEDS: Digoxin 250 mcg (0.25 mg) Tab PO SCH (17:10)
[2017-10-11 17:11] VITALS: PULSE 84
[2017-10-11 18:02] VITALS: O2SAT 98
[2017-10-12 06:33] VITALS: RESP 20; TEMP 97.5
[2017-10-12] MEDS: Venlafaxine 150 mg ER Cap PO SCH (09:09)
[2017-10-12] MEDS: Venlafaxine 75 mg ER Cap PO SCH (09:09)
[2017-10-12 10:22] VITALS: BP 113/71; PULSE 80
--- NOTE | 2017-10-12 10:45 | PCM.PYCHDC ---
Mental Status Examination - Mental Status Examination Orientation: Person, Place, Situation, Time Memory: Intact Mood: Neutral Affect: Constricted Speech: Soft Attention: WNL Concentration: WNL Association: WNL Fund of Knowledge: WNL Formal Thought Process: No Impairment Description of patient's judgement and insight: good, fair Psychotic Thoughts and Behaviors: denies any AVH Suicidal Ideation: No Current Homicidal Ideation?: No Discharge Summary - Discharge Note Reason for Hospitalization: This is a 67 years old female with a history of schizoaffective disorder came to the ED complaining of hearing voices. As per the ED note, patient reported that she saw her doctor on 10/02/17 before he went on vacation and then saw another doctor Dr. Rivas. Pt. reported that she has been taking her medications as prescribed and she still continues to hear voices. Pt. reports that the voices do not tell her to hurt herself or other people. Pt. reports that she lives with her two sons and one of them is and lives with his in the house. Pt. reports that her in the early part of 1999. Pt. reports that she recently had to in her family. Pt. reports that her nephew a few weeks ago and a close family friend also around the same time. Pt. reports that she is retired at this time. 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 Pt. reports that she has strong upbringing and would not hurt herself or anyone else. Patient remained disorganized and internally preoccupied. She appears paranoid and delusional. She reports depressed mood and feelings of hopelessness and helplessness. However, she denies any suicidal ideation or homicidal ideation. She denies any drugs or any alcohol abuse. Consultations:: List each consultation separately and include: 1. Reason for request. 2. Findings. 3. Follow-up Summary of Hospital Course include:: 1. Description of specific treatment plan utilized for patients during their course of treatmen. 2. Summarize the time- course for resolution of acute symptoms and/or regressed behaviors. 3. Describe issues identified and worked on during hospitalization. 4. Describe medication utilized. 5. Describe medical problems identified and treated. 6. Reassessment of suicide risk Summary of Hospital Course: During the course of her stay, patient (pt) started progressively improving and no longer remained irritable, depressed, paranoid and suicidal. Her mood and anxiety were improved and she started attending groups and meetings and started socializing. Patient denied any feelings of hopelessness, helplessness, and worthlessness, denied any problem with the sleep or appetite, denied suicidal ideation or homicidal ideation. Pt denied any auditory or visual hallucinations. She denied any withdrawal symptoms. Some changes were made in her current medications and patient was discharged on following medications. She tolerated these medications very well and denied any side effects. She was [facility] to the [facility]. - Diagnosis (1) Schizoaffective disorder Status: Acute - Final Diagnosis (DSM 5) Condition upon Discharge: STABLE DSM 5: Schizoaffective disorder depressed type Disposition: HOME/ ROUTINE Follow-up Treatment Plan: Education: Pt was educated and counseled about the risks and benefits of taking and not taking medications. Pt was educated and counseled about the risks of drinking and abusing drugs. Pt was educated and counseled to go to the ER or call 911 if pt develop suicidal ideation or homicidal ideation, worsening of symptoms or severe side effects of the meds. Prescriptions/Medication Reconciliation: Benztropine [Cogentin] 0.5 mg PO BID #60 tab Digoxin [Lanoxin] 0.25 mg PO DAILY@1800 #30 tab Phenytoin, Extended [Dilantin] 100 mg PO TID #90 cer risperiDONE [RisperDAL Tab] 1 mg PO DAILY #60 tab risperiDONE [RisperDAL Tab] 3 mg PO HS #30 tab traZODone [Desyrel] 100 mg PO HS #30 tab Venlafaxine [Effexor XR] 150 mg PO DAILY #30 cer Venlafaxine [Effexor XR] 75 mg PO DAILY #30 cer - Smoking Cessation Smoking Cessation Medication prescribed: No - Antipsychotic Medications Pt discharged on 2 or more routine antipsychotic medications: No
--- NOTE | 2017-10-12 18:37 | CARD ---
APPROVED REPORT EKG Measurement Heart [id number] <Conclusion> Normal sinus rhythm Anterolateral infarct, age undetermined Abnormal ECG
== END 2017-10-12 11:20 | disposition home or self-care (01) | DRG 885 ==
LOC: C.ER 01:41 → C.9E 05:10 → C.5E 05:10
PROVIDERS: ADMIT Psychiatry & Neurology Psychiatry; ATTEND Psychiatry & Neurology Psychiatry
PROC: GZHZZZZ Group Psychotherapy (ICD-10-PCS; principal; 2017-10-07)
PROC: GZ58ZZZ Individual Psychotherapy, Cognitive-Behavioral (ICD-10-PCS; 2017-10-07)
PROC: GZ56ZZZ Individual Psychotherapy, Supportive (ICD-10-PCS; 2017-10-07)
DX: F25.1 Schizoaffective disorder, depressive type (principal); I50.9 Heart failure, unspecified; J44.9 Chronic obstructive pulmonary disease, unspecified; G40.909 Epilepsy, unspecified, not intractable, without status epilepticus; F41.9 Anxiety disorder, unspecified; F17.210 Nicotine dependence, cigarettes, uncomplicated

== ENCOUNTER 2017-10-17 06:43 | Emergency (ER) | payer MEDICARE ==
[2017-10-17 06:43] VITALS: PULSE 84; BMI 15.0
[2017-10-17 07:04] VITALS: RESP 20
--- NOTE | 2017-10-17 07:32 | C.PDOC ---
History Of Present Illness 67-year-old female, PMHx includes schizoaffective disorder, seizure disorder, cardiac arrythmia (on Digoxin), presents to the emergency department accompanied by son, with complaints of auditory hallucinations. Patient discharged from hospital on 10/12, returns today stating symptoms persist. No SI/ HI at this time. Time Seen by Provider: 10/17/17 07:08 Chief Complaint (Nursing): Psychiatric Evaluation History Per: Patient, Family History/Exam Limitations: no limitations Past Medical History Reviewed: Historical Data, Nursing Documentation, Vital Signs Vital Signs: Last Vital Signs Temp 97.9 F 10/17/17 10:10 Pulse 77 10/17/17 10:10 Resp 20 10/17/17 10:10 BP 156/78 H 10/17/17 10:10 Pulse Ox 99 10/17/17 10:43 - Medical History PMH: Anxiety, Cardia Arrhythmia, COPD, Depression, Schizophrenia, Seizures ( EPILEPSY) Surgical History: Appendectomy - [facility] Procedures CORONAR ARTERIOGR-2 CATH (01/13/14) GROUP PSYCHOTHERAPY (10/07/17) INDIVIDUAL PSYCHOTHERAPY, COGNITIVE-BEHAVIORAL (10/07/17) INDIVIDUAL PSYCHOTHERAPY, SUPPORTIVE (10/07/17) LEFT HEART CARDIAC CATH (01/13/14) LT HEART ANGIOCARDIOGRAM (01/13/14) Family History: States: No Known Family Hx - Social History Hx Tobacco Use: Yes Hx Alcohol Use: No Hx Substance Use: No - Immunization History Hx Tetanus Toxoid Vaccination: No Hx Influenza Vaccination: Yes Hx Pneumococcal Vaccination: No Review Of Systems Constitutional: Negative for: Fever Cardiovascular: Negative for: Chest Pain Respiratory: Negative for: Shortness of Breath Gastrointestinal: Negative for: Vomiting Psych: Negative for: Psychosis, Suicidal ideation Physical Exam - Physical Exam Appears: Non-toxic, No Acute Distress, Other (Calm, cooperative. No active psychosis.) Skin: Normal Color, Warm, Dry, No Rash Head: Normacephalic Eye(s): bilateral: PERRL Nose: Normal Oral Mucosa: Moist Lips: Normal Appearing Neck: Normal ROM Cardiovascular: Rhythm Regular, No Murmur Respiratory: Normal Breath Sounds, No Accessory Muscle Use Extremity: Normal ROM, No Deformity Neurological/Psych: Oriented x3, Normal Speech ED Course And Treatment - Laboratory Results Result Diagrams: 10/17/17 07:37 10/17/17 07:37 O2 Sat by Pulse Oximetry: 99 (RA) Pulse Ox Interpretation: Normal Medical Decision Making Medical Decision Making: Plan: * Bloodwork * UA * Reassess and Disposition Patient seen and evaluated by right of way worker. States to discharge patient for outpt f/u with Dr Koenig at 10:20 today. Patient and family agreeable, all questions answered. Disposition - Disposition Referrals: Keyur Jimenez MD [Primary Care Provider] - Perry Koenig MD [Staff Provider] - Disposition: HOME/ ROUTINE Disposition Time: 11:00 Condition: STABLE Additional Instructions: see your doctor today at 1020 am as discussed return to ER if symptoms worsens or progress Instructions: Schizoaffective Disorder Forms: General Discharge Instructions, [facility] (Welsh) - Clinical Impression Clinical Impression: Schizoaffective disorder - Scribe Statement The provider has reviewed the documentation as recorded by the Scribe (Karen Mantilla) All medical record entries made by the Scribe were at my direction and personally dictated by me. I have reviewed the chart and agree that the record accurately reflects my personal performance of the history, physical exam, medical decision making, and the department course for this patient. I have also personally directed, reviewed, and agree with the discharge instructions and disposition.
[2017-10-17 07:41] LABS: BASO # 0.1 K/uL (0.0-0.2); EOS % 0.7 % (0.0-4.0); HEMOGLOBIN 13.2 g/dL (11.0-16.0); LYMPH # 1.6 K/uL (1.0-4.3); MEAN CELL VOLUME 99.9 fL (81.0-99.0); MEAN CORPUSCULAR HEMOGLOBIN 34.6 pg (27.0-31.0); MEAN CORPUSCULAR HGB CONC 34.6 g/dL (33.0-37.0); MEAN PLATELET VOLUME 8.2 fL (7.2-11.7); MONO # 0.5 K/uL (0.0-0.8); MONO % 6.6 % (0.0-10.0); NEUT # 5.2 K/uL (1.8-7.0); NEUT % 69.7 % (50.0-75.0); RBC 3.82 Mil/uL (3.80-5.20); RED CELL DISTRIBUTION WIDTH 12.8 % (11.5-14.5); WHITE BLOOD COUNT 7.5 K/uL (4.8-10.8)
[2017-10-17 07:53] LABS: SQUAMOUS EPITHIAL 5 /hpf (0-5); URINE BACTERIA RARE (<OCC); URINE BILIRUBIN NEGATIVE (NEGATIVE); URINE BLOOD NEGATIVE (NEGATIVE); URINE CLARITY Hazy (Clear); URINE COLOR Yellow (YELLOW); URINE GLUCOSE (UA) NORMAL (Normal); URINE LEUKOCYTE ESTERASE TRACE Leu/uL (Negative); URINE PROTEIN NEGATIVE (NEGATIVE); URINE UROBILINOGEN NORMAL mg/dL (0.2-1.0)
[2017-10-17 08:20] LABS: ALB/GLOB RATIO 1.3 (1.0-2.1); ALBUMIN 4.4 g/dL (3.5-5.0); ALT/SGPT 49 U/L (9-52); AST/SGOT 33 U/L (14-36); BLOOD UREA NITROGEN 9 mg/dL (7-17); CALCIUM 9.1 mg/dl (8.6-10.4); GFR AFRICAN-AMERICAN > 60; GFR NON-AFRICAN AMERICAN > 60
[2017-10-17 08:41] LABS: BARBITURATES, UR NEGATIVE (NEGATIVE); BENZODIAZEPINES, UR NEGATIVE (NEGATIVE); OPIATES, UR NEGATIVE (NEGATIVE); PHENCYCLIDINE, UR NEGATIVE (NEGATIVE)
[2017-10-17 10:12] VITALS: BP 156/78; PULSE 77; TEMP 97.9
[2017-10-17 10:44] VITALS: O2SAT 99
== END 2017-10-17 10:17 | disposition home or self-care (01) ==
LOC: C.ER 06:43 → SUPCPDRO 06:43 → C.ER 10:17
DX: F25.9 Schizoaffective disorder, unspecified (principal); Z72.0 Tobacco use
CPT/HCPCS: 80053; 81001; 85025; 99283; G0480

== ENCOUNTER 2018-11-02 10:01 | Emergency (ER) | payer MEDICARE ==
[2018-11-02 10:01] VITALS: PULSE 68
[2018-11-02 10:05] VITALS: BMI 12.7
[2018-11-02 10:06] VITALS: RESP 18; TEMP 97.9
--- NOTE | 2018-11-02 10:30 | C.PDOC ---
History Of Present Illness 68 yo female, hx of schizophrenia, on dig for chf, presnt siwth dentla pain x weeks. has not seen dentist 2/2 insurance. no fevers, no other comaplints Time Seen by Provider: 11/02/18 10:21 Chief Complaint (Nursing): Dental Pain Past Medical History Reviewed: Historical Data, Nursing Documentation, Vital Signs Vital Signs: Last Vital Signs Temp 97.9 F 11/02/18 10:04 Pulse 87 11/02/18 10:04 Resp 18 11/02/18 10:04 BP 134/84 11/02/18 10:04 Pulse Ox 100 11/02/18 10:04 - Medical History PMH: Anxiety, Cardia Arrhythmia, COPD, Depression, Schizophrenia, Seizures (EPILEPSY) Denies: Diabetes, Hepatitis, HIV, HTN, Chronic Kidney Disease, Sexually Transmitted Disease Surgical History: Appendectomy - [facility] Procedures CORONAR ARTERIOGR-2 CATH (01/13/14) GROUP PSYCHOTHERAPY (10/17/17) INDIVIDUAL PSYCHOTHERAPY, BEHAVIORAL (10/17/17) INDIVIDUAL PSYCHOTHERAPY, COGNITIVE-BEHAVIORAL (10/07/17) INDIVIDUAL PSYCHOTHERAPY, SUPPORTIVE (10/07/17) LEFT HEART CARDIAC CATH (01/13/14) LT HEART ANGIOCARDIOGRAM (01/13/14) Family History: States: Unknown Family Hx - Social History Hx Tobacco Use: Yes Hx Alcohol Use: No Hx Substance Use: No - Immunization History Hx Tetanus Toxoid Vaccination: No Hx Influenza Vaccination: Yes Hx Pneumococcal Vaccination: Yes Review Of Systems ENT: Positive for: Other (dentla pain) Physical Exam - Physical Exam Appears: Well, No Acute Distress Skin: Normal Color, Warm, Dry Eye(s): bilateral: Normal Inspection, PERRL, EOMI Nose: Normal Teeth: Other (extensive dental decay) Throat: Normal Neck: Normal Cardiovascular: Rhythm Regular Respiratory: Normal Breath Sounds Gastrointestinal/Abdominal: Normal Exam Back: Normal Inspection Extremity: Normal ROM ED Course And Treatment O2 Sat by Pulse Oximetry: 100 Medical Decision Making Medical Decision Making: extensive dental decay with careis. poor oral hygeine Disposition - Disposition Disposition: HOME/ ROUTINE Disposition Time: 10:29 Condition: STABLE Additional Instructions: please see dentist. return to er with worsening symptoms or concerns. Prescriptions: Amoxicillin [Amoxil 500 mg Cap] 500 mg PO TID #21 cap Instructions: Dental Pain (DC) - Clinical Impression Clinical Impression: Pain, dental
[2018-11-02 10:51] VITALS: PULSE 80; O2SAT 99
[2018-11-02 10:52] VITALS: BP 120/72
== END 2018-11-02 10:53 | disposition home or self-care (01) ==
LOC: C.ER 10:01
DX: K08.89 Other specified disorders of teeth and supporting structures (principal)

== ENCOUNTER 2018-11-27 18:25 | Emergency (ER) | payer MEDICARE ==
[2018-11-27 18:25] VITALS: PULSE 68; BMI 12.7
[2018-11-27 18:34] VITALS: RESP 18
--- NOTE | 2018-11-27 19:47 | C.PDOC ---
History Of Present Illness Patient presents to the ED for evaluation of auditory hallucinations. Patient denies SI/HI, visual hallucinations, injury, fall, trauma. Time Seen by Provider: 11/27/18 19:47 Chief Complaint (Nursing): Psychiatric Evaluation History Per: Patient History/Exam Limitations: no limitations Onset/Duration Of Symptoms: Days Current Symptoms Are (Timing): Still Present Suicide/Self Injury Attempted (Context): None Associated Symptoms: Paranoia. denies: Depression, Suicidal Thoughts, Suicidal Plan Recent travel outside of the [place]: No Additional History Per: Patient Past Medical History Reviewed: Historical Data, Nursing Documentation, Vital Signs Vital Signs: Last Vital Signs Temp 98.1 F 11/27/18 18:33 Pulse 86 11/27/18 18:33 Resp 18 11/27/18 18:33 BP 144/78 11/27/18 18:33 Pulse Ox 100 11/27/18 18:33 - Medical History PMH: Anxiety, Cardia Arrhythmia, COPD, Depression, Schizophrenia, Seizures (EPILEPSY) Denies: Diabetes, Hepatitis, HIV, HTN, Chronic Kidney Disease, Sexually Transmitted Disease Surgical History: Appendectomy - [facility] Procedures CORONAR ARTERIOGR-2 CATH (01/13/14) GROUP PSYCHOTHERAPY (10/17/17) INDIVIDUAL PSYCHOTHERAPY, BEHAVIORAL (10/17/17) INDIVIDUAL PSYCHOTHERAPY, COGNITIVE-BEHAVIORAL (10/07/17) INDIVIDUAL PSYCHOTHERAPY, SUPPORTIVE (10/07/17) LEFT HEART CARDIAC CATH (01/13/14) LT HEART ANGIOCARDIOGRAM (01/13/14) Family History: States: Unknown Family Hx - Social History Hx Tobacco Use: Yes Hx Alcohol Use: No Hx Substance Use: No - Immunization History Hx Tetanus Toxoid Vaccination: No Hx Influenza Vaccination: Yes Hx Pneumococcal Vaccination: Yes Review Of Systems Constitutional: Negative for: Fever, Chills Cardiovascular: Negative for: Chest Pain Respiratory: Negative for: Shortness of Breath Gastrointestinal: Negative for: Nausea, Vomiting, Abdominal Pain Skin: Negative for: Rash Psych: Positive for: Psychosis. Negative for: Depression, Suicidal ideation Physical Exam - Physical Exam Appears: Non-toxic, No Acute Distress Skin: Warm, Dry Head: Normacephalic Eye(s): bilateral: Normal Inspection Neck: Supple Chest: Symmetrical Cardiovascular: Rhythm Regular Respiratory: No Rales, No Rhonchi, No Wheezing Gastrointestinal/Abdominal: Soft, No Tenderness, No Guarding, No Rebound Extremity: Bilateral: Atraumatic, Normal Color And Temperature, Normal ROM Neurological/Psych: Oriented x3, Normal Speech, Normal Cognition Gait: Steady ED Course And Treatment - Laboratory Results Result Diagrams: 11/27/18 19:58 11/27/18 19:58 ECG: Interpreted By Me, Viewed By Me ECG Rhythm: Sinus Rhythm (79), Nonspecific Changes O2 Sat by Pulse Oximetry: 100 (On RA) Pulse Ox Interpretation: Normal - Radiology CXR: Interpreted by Me, Viewed By Me CXR Interpretation: No: Infiltrates, Fracture, Pnemothorax Progress Note: Plan: - Labs. - UA. - Crisis eval. Pt is medically cleared for psych admision. pt was accepted by dr camacho in transfer to [facility] Disposition Counseled Patient/Family Regarding: Studies Performed, Diagnosis - Disposition Disposition: Trans to Other Acute Care Hosp Disposition Time: 19:47 Condition: GOOD Forms: [facility] (Guinean) - Clinical Impression Clinical Impression: Schizo affective schizophrenia - Scribe Statement The provider has reviewed the documentation as recorded by the Scribe Sharath Lozano All medical record entries made by the Scribe were at my direction and personally dictated by me. I have reviewed the chart and agree that the record accurately reflects my personal performance of the history, physical exam, medical decision making, and the department course for this patient. I have also personally directed, reviewed, and agree with the discharge instructions and disposition.
[2018-11-27 20:02] LABS: BASO # 0.1 K/uL (0.0-0.2); BASO % 1.5 % (0.0-2.0); EOS # 0.1 K/uL (0.0-0.7); EOS % 1.1 % (0.0-4.0); HEMOGLOBIN 12.7 g/dL (11.0-16.0); LYMPH # 2.3 K/uL (1.0-4.3); LYMPH % 30.1 % (20.0-40.0); MEAN CELL VOLUME 100.6 fL (81.0-99.0); MEAN CORPUSCULAR HEMOGLOBIN 33.7 pg (27.0-31.0); MEAN CORPUSCULAR HGB CONC 33.5 g/dL (33.0-37.0); MEAN PLATELET VOLUME 7.6 fL (7.2-11.7); MONO # 0.4 K/uL (0.0-0.8); MONO % 5.5 % (0.0-10.0); NEUT # 4.6 K/uL (1.8-7.0); NEUT % 61.8 % (50.0-75.0); RBC 3.77 Mil/uL (3.80-5.20); RED CELL DISTRIBUTION WIDTH 13.7 % (11.5-14.5); WHITE BLOOD COUNT 7.5 K/uL (4.8-10.8)
[2018-11-27 20:07] LABS: SQUAMOUS EPITHIAL 6 /hpf (0-5); URINE BACTERIA RARE (<OCC); URINE BILIRUBIN NEGATIVE (NEGATIVE); URINE BLOOD NEGATIVE (NEGATIVE); URINE CLARITY Hazy (Clear); URINE COLOR Yellow (YELLOW); URINE GLUCOSE (UA) NORMAL (Normal); URINE LEUKOCYTE ESTERASE 1+ Leu/uL (Negative); URINE PROTEIN NEGATIVE (NEGATIVE); URINE UROBILINOGEN NORMAL mg/dL (0.2-1.0)
[2018-11-27 20:15] LABS: ALB/GLOB RATIO 1.5 (1.0-2.1); ALBUMIN 4.5 g/dL (3.5-5.0); ALT/SGPT 35 U/L (9-52); AST/SGOT 37 U/L (14-36); BLOOD UREA NITROGEN 10 mg/dL (7-17); CALCIUM 9.8 mg/dl (8.6-10.4); GFR NON-AFRICAN AMERICAN > 60
[2018-11-27 20:18] LABS: BARBITURATES, UR NEGATIVE (NEGATIVE); BENZODIAZEPINES, UR NEGATIVE (NEGATIVE); OPIATES, UR NEGATIVE (NEGATIVE); PHENCYCLIDINE, UR NEGATIVE (NEGATIVE)
[2018-11-28 00:10] VITALS: BP 109/66; PULSE 79; TEMP 98.3
[2018-11-28 02:42] VITALS: O2SAT 100
--- NOTE | 2018-11-28 08:00 | RAD ---
Date of service: 11/27/2018 HISTORY: crisis eval COMPARISON: Portable chest 06/11/2016. TECHNIQUE: 1 view obtained. FINDINGS: LUNGS: No active pulmonary disease. PLEURA: No significant pleural effusion identified, no pneumothorax apparent. CARDIOVASCULAR: No aortic atherosclerotic calcification present. Normal cardiac size. No pulmonary vascular congestion. OSSEOUS STRUCTURES: No significant abnormalities. VISUALIZED UPPER ABDOMEN: Normal. OTHER FINDINGS: None. IMPRESSION: No interval acute cardiopulmonary disease appreciated.
--- NOTE | 2018-11-28 18:29 | CARD ---
APPROVED REPORT Date of service: 11/27/2018 EKG Measurement Heart [id number] <Conclusion> Normal sinus rhythm Rightward axis Borderline ECG
== END 2018-11-28 01:36 | disposition short-term general hospital (02) ==
LOC: C.ER 18:25
DX: F25.9 Schizoaffective disorder, unspecified (principal)
CPT/HCPCS: 71045; 80053; 81001; 83735; 84100; 85025; 93005; 99284; G0480